=== PATIENT | male | born 1990 | race Two or more races ===

== ENCOUNTER 2018-11-03 23:14 | Outpatient (CLI) | payer OTHER ==
--- NOTE | 2018-11-03 23:44 | Diagnostic Imaging Report ---
Indication: Headache Technique: Contiguous 5 mm thick transaxial imaging of the head obtained in a Siem[employer] Sensation [address] scanner. Soft tissue and bone windows generated. Automatic Exposure Control was utilized. Total Dose length Product (DLP): 1470.[address] Dose Index Volume (CTDIvol): 70.38 mGy Comparison: none Findings: The size and configuration of the cortical sulci, basal cisterns, and ventricles are within normal limits for age. There is no mass effect, midline shift, or edema identified. There is no evidence of acute hemorrhage or abnormal intra-axial or extra-axial fluid collections. The bones and soft tissues are unremarkable. Small fluid retention cyst noted in the left maxillary sinus. Impression: No mass effect, edema or acute bleed. [facility] has communicated the preliminary results to the Emergency Department. Their findings are largely concordant with this report. The CT scanner at [facility] is accredited by the [employer] and the scans are performed using dose optimization techniques as appropriate to a performed exam including Automatic Exposure control.
== END 2018-11-03 23:59 | disposition home or self-care (01) ==
LOC: RAD 23:14
DX: R51 Headache (principal)
CPT/HCPCS: 70450